=== PATIENT | male | born 1995 | race American Indian/Alaskan Native ===

== ENCOUNTER 2017-01-31 16:26 | Emergency (ER) | payer OTHER ==
[2017-01-31 16:43] VITALS: BMI 27.3
[2017-01-31 16:47] VITALS: BP 152/102; PULSE 70; RESP 16; TEMP 99.1
--- NOTE | 2017-01-31 18:22 | ED PDOC ---
Arrival/HPI - General Chief Complaint: Finger,Hand,&Wrist Time Seen by Provider: 01/31/17 17:13 Historian: Patient - History of Present Illness Narrative History of Present Illness (Text): 01/31/17 18:11 Patient reports injuring his right hand when when he punched a wall a few days ago. Patient reports continued swelling and bruising prompting ER visit today. Otherwise: (-) other injury, (-) numbness. Occupation - patient is a assistant athletic trainer. Patient is R hand dominant. Past Medical History - Provider Review Nursing Documentation Reviewed: Yes - Past History Past History: No Previous - Infectious Disease Hx of Infectious Diseases: None - Tetanus Immunization Tetanus Immunization: Unknown - Past Medical History Past Medical History: No Previous - Neurological Hx Seizures: Yes - Psychiatric Hx Substance Use: No - Past Surgical History Past Surgical History: No Previous - Surgical History Hx Tonsillectomy: Yes - Anesthesia Hx Anesthesia Reactions: No Hx Malignant Hyperthermia: No - Suicidal Assessment Feels Threatened In Home Enviroment: No Family/Social History - Physician Review Nursing Documentation Reviewed: Yes Family/Social History: No Known Family HX Smoking Status: Former Smoker Hx Alcohol Use: Yes Frequency of alcohol use: Socially Hx Substance Use: No Hx Substance Use Treatment: No Allergies/Home Meds Allergies/Adverse Reactions: Allergies divalproex sodium [From Depakote] Allergy (Verified 01/31/17 17:21) RASH Penicillins Allergy (Verified 01/31/17 17:21) RASH Review of Systems - Review of Systems Constitutional: Normal. absent: Fatigue, Weight Change, Fevers Musculoskeletal: Normal, Arthralgias. absent: Back Pain, Neck Pain Skin: Normal. absent: Rash, Skin Lesions Physical Exam - Physical Exam Narrative Physical Exam (Text): 01/31/17 18:25 GENERAL APPEARANCE: Patient is awake, alert, oriented x 3, in no acute distress. SKIN: Warm, (-) rash, (-) lesions. UPPER EXTREMITY: (+) Tenderness, (+) moderate swelling, (+) ecchymosis of the dorsal aspect of the hand over the 4th and 5th metacarpal; (-) crepitus, (-) deformity. Tendon function intact. (-) distal neurovascular deficit. (+) 2 point discrimination. Remainder of hand, digits and wrist: (-) injury. Vital Signs Temp Pulse Resp BP Pulse Ox 01/31/17 18:40 16 98 01/31/17 16:27 99.1 F 70 16 152/102 H 97 Medical Decision Making ED Course and Treatment: 01/31/17 18:26 21 yo M presents with R hand injury. XR R hand ordered. XR right hand: no fracture, no dislocation, as read by PA Patient advised that official radiology read of XR is still pending and will call the patient if there is any discrepancy within 24 hours. X-ray results discussed with the patient in great detail. Orthoglass ulnar gutter splint applied by PA. Neurovascular intact post splint application. Shoulder sling applied. Repeat BP 145/90. Advised to follow up his BP with a pmd. Based on history, exam and diagnostic results plan will be for outpatient follow -up with orthopedic referral provided. Patient states he fully agrees with and understands discharge instructions. States that he agrees with the plan and disposition. Verbalized and repeated discharge instructions and plan. I have given the patient opportunity to ask any additional questions. Follow up with ortho referral in 1-2 days without fail. Advised to take medication as prescribed. Return to the emergency room at any time for any new or worsening symptoms. - RAD Interpretation Radiology Orders: 01/31/17 17:24 HAND RIGHT 3 VIEWS [RAD] Stat - PA / PROVER / Resident Statement MD/DO has reviewed & agrees with the documentation as recorded. Disposition/Present on Arrival - Present on Arrival Any Indicators Present on Arrival: No History of DVT/PE: No History of Uncontrolled Diabetes: No Urinary Catheter: No History of Decub. Ulcer: No History Surgical Site Infection Following: None - Disposition Have Diagnosis and Disposition been Completed?: Yes Diagnosis: Boxers fracture Disposition: HOME/ ROUTINE Disposition Time: 18:28 Patient Plan: Discharge Condition: GOOD Discharge Instructions (ExitCare): Hand Fracture (ED) Print Language: MONGOLIAN Additional Instructions: Thank you for letting us take care of you today. You were treated for boxer fracture. The emergency medical care you received today was directed at your acute symptoms. If you were prescribed any medication, please fill it and take as directed. It may take several days for your symptoms to resolve. Return to the Emergency Department if your symptoms worsen, do not improve, or if you have any other problems. Please orthopedic referral provided in 2 days for re-evaluation and follow up. Bring any paperwork you were given at discharge with you along with any medications you are taking to your follow up visit. Our treatment cannot replace ongoing medical care by a primary care provider (PCP) outside of the emergency department. Thank you for allowing the [facility] [employer] [facility] team to be part of your care today. Referrals: Shaik Lang MD [Primary Care Provider] - Follow up with primary Jeff Mcknight III, MD [Medical Doctor] - Follow up with primary Forms: WORK NOTE
[2017-01-31 18:41] VITALS: O2SAT 98
--- NOTE | 2017-02-01 09:29 | RAD ---
PROCEDURE: Right Hand Radiographs. HISTORY: pain COMPARISON: None. FINDINGS: BONES: There is a transverse impacted fracture of the base of the 5th metacarpal JOINTS: Normal. No osteoarthritic changes. SOFT TISSUES: Normal. OTHER FINDINGS: None. IMPRESSION: There is a transverse impacted fracture of the base of the 5th metacarpal
== END 2017-01-31 18:40 | disposition home or self-care (01) ==
LOC: ED 16:26
DX: S62.316A Displaced fracture of base of fifth metacarpal bone, right hand, initial encounter for closed fracture (principal); W22.01XA Walked into wall, initial encounter; Z87.891 Personal history of nicotine dependence